=== PATIENT | male | born 1940 | race Caucasian/White ===

== ENCOUNTER → 2021-10-31 | Outpatient (CLI) | payer MEDICARE, OTHER ==
--- NOTE | 2021-11-02 15:25 | MR ---
EXAMINATION TYPE: MR Prostate wo/w con DATE OF EXAM: 10/31/2021 COMPARISON: None. INDICATION: MALIGNANT NEOPLASM OF PROSTATE PSA: 5.27 ng/ml on April 03, 2021 and 5.41 on October 12, 2021 Recent Biopsy and Date: July 01, 2021 Pathology Report (If Applicable): Right lateral apical adenocarcinoma 3+3 = 6, involving 0.5 mm tissu e 5%. Right lateral mid adenocarcinoma Lavina grade 4+3 = 7, involving 7 mm length 40%, right base a denocarcinoma 3+4 = 7, length 8 mm 40%. Left lateral apex atypia. TECHNIQUE: Examination was performed using a 3T MRI without an endorectal coil. Multiparametric imaging was perf ormed with T2 mutliplanar sequences, axial diffusion weighted imaging and dynamic contrast enhanced i maging, utilizing 13 mL intravenous Gadavist gadolinium contrast. FINDINGS: Suboptimal as there is significant motion artifact compromise PROSTATE VOLUME: 5.4 cm SI x 3.2 cm AP x 4.8 cm LR Vol= 43.4 cc Predicted PSA equals 5.21. PSA DENSITY: 0.12 ng/ml/cc Slightly enlarged prostate gland is present. Prolonged shows some areas of indistinct hypointensity o n ADC mapping and T2-weighted images without increased signal on diffusion. Central transitional zone shows heterogeneity without discrete or suspicious areas of T2 hypointensity. No restricted diffusio n. Prostate capsule is maintained. Small amount of residual hemorrhage anterior right mid zone and po sterior right base from biopsy is noted. Bladder shows marked scattered diverticula. Seminal vesicles symmetric and within normal limits. No a bnormal bowel dilatation. No pelvic ascites. Visualized osseous structures are intact. IMPRESSION: Enlarged prostate consistent with BPH. Marked diverticular formation in the urinary bladd er bilaterally. A focus of clinically significant cancer is not identified on MRI. Highest Assessment Category: 2 MRI Stage: T1c N0 M0 based on review of pelvic images. False negative rates for MRI range from 5-20% depending on risk profile. Assessment Categories: 1 ? Very low (clinically significant cancer is highly unlikely to be present) 2 ? Low (clinically significant cancer is unlikely to be present) 3 ? Intermediate (the presence of clinically significant cancer is equivocal) 4 ? High (clinically significant cancer is likely to be present) 5 ? Very high (clinically significant cancer is highly likely to be present)
== END | disposition home or self-care (01) ==
LOC: RADMRIMAIN 09:41
PROVIDERS: ATTEND Internal Medicine
DX: C61 Malignant neoplasm of prostate (principal)
CPT/HCPCS: 72197; A9585

== ENCOUNTER → 2022-05-05 | Outpatient (CLI) | payer MEDICARE, OTHER ==
--- NOTE | 2022-05-05 11:54 | US ---
EXAMINATION TYPE: US kidneys/renal and bladder DATE OF EXAM: 05/05/2022 COMPARISON: MRI prostate 7 and 22. CLINICAL HISTORY: N39.0 URINARY TRACT INFECTION, SITE NOT SPECIFIED. EXAM MEASUREMENTS: Right Kidney: 10.8 x 5.2 x 5.2 cm Left Kidney: 11.6 x 5,7 x 6.7 cm Patient of large body habitus, somewhat limiting study. Right Kidney: No hydronephrosis or masses seen Left Kidney: No hydronephrosis or masses seen Bladder: probable bladder stone measuring 8mm, irregular contour of posterior wall, hypoechoic tubul ar structure is felt to represent Trabeculation and bladder diverticula seen on prior MRI. There is no evidence for hydronephrosis at this point in time. No nephrolithiasis is seen. No jacek s are identified. The urinary bladder is anechoic. Bilateral ureteral jets are seen. IMPRESSION: 1. Suspected bladder stone present. 2. Trabeculated bladder wall with diverticula which can be seen in setting of chronic bladder outlet obstruction given patient's prostatomegaly.
== END | disposition home or self-care (01) ==
LOC: RADUSWWP 10:20
PROVIDERS: ATTEND Urology
DX: N40.0 Benign prostatic hyperplasia without lower urinary tract symptoms (principal); N32.89 Other specified disorders of bladder; N32.0 Bladder-neck obstruction; N32.3 Diverticulum of bladder; N39.0 Urinary tract infection, site not specified
CPT/HCPCS: 76770

== ENCOUNTER → 2023-01-31 | Outpatient (CLI) | payer MEDICARE, OTHER ==
[2023-01-31 15:42] LABS: Basophils # (A) 0.03 X 10*3/uL (0.00-0.10); Basophils % (A) 0.5 %; Eosinophils % (A) 3.2 %; HCT 45.2 % (39.6-50.0); HGB 14.8 d/dL (13.0-17.0); Lymphocytes % (A) 26.9 %; MCH 28.4 pg (27.0-32.0); MCHC 32.7 d/dL (32.0-37.0); MCV 86.6 FL (80.0-97.0); Mean Platelet Volume 10.5 FL (9.5-12.2); Monocytes # (A) 0.51 X 10*3/uL (0.20-1.00); Monocytes % (A) 8.1 %; NRBC Per 100 WBC 0 X 10*3/uL (0.00-0.01); Neutrophils # (A) 3.85 X 10*3/uL (1.80-7.70); Neutrophils % (A) 60.7 %; Platelet Count 176 X 10*3/uL (140-440); RBC 5.22 X 10*6/uL (4.40-5.60); RDW 14.7 % (11.5-14.5); WBC 6.33 X 10*3/uL (4.50-10.00)
[2023-01-31 16:08] LABS: BUN/Creat Ratio 23.91 Ratio (12.00-20.00); Blood Urea Nitrogen 26.3 mg/dL (9.0-27.0); Calcium 9.1 mg/dL (8.7-10.3); Carbon Dioxide 27.1 mmol/L (21.6-31.8); Chloride 110 mmol/L (96-109); Glucose 108 mg/dL (70-110); Potassium 4.6 mmol/L (3.5-5.5); Sodium 146 mmol/L (135-145)
[2023-01-31 18:01] LABS: Appearance,Urine Turbid (Clear); Bacteria,Urine 3+ (None Seen); Bilirubin,Urine Negative (Negative); Blood,Urine Moderate (Negative); Color,Urine Dark Yellow (Yellow); Ketones,Urine Negative (Negative); Nitrite,Urine Negative (Negative); Specific Gravity,Urine 1.019 (1.001-1.030)
== END | disposition home or self-care (01) ==
LOC: LABPAT 11:12
PROVIDERS: ATTEND Urology
DX: Z01.812 Encounter for preprocedural laboratory examination (principal); N35.014 Post-traumatic urethral stricture, male, unspecified
CPT/HCPCS: 80048; 81001; 85025; 87086

== ENCOUNTER 2023-02-09 08:52 | Day surgery (SDC) | payer MEDICARE, OTHER ==
--- NOTE | 2023-02-08 18:39 | P.GSHP ---
History of Present Illness H&P Date: 02/08/23 82 yo male with a t1C prostate cancer dx in 2021, g6 07/04 biopsies on has a recurrent urethral stricture previously dilated He comes for a dviu. The risks , complications and alternatives have been discussed. - Constitutional Constitutional: Denies chills, Denies fever - EENT Eyes: denies blurred vision, denies pain Ears, nose, mouth and throat: Denies headache, Denies sore throat - Cardiovascular Cardiovascular: Denies chest pain, Denies shortness of breath - Respiratory Respiratory: Denies cough, Denies 7 - Gastrointestinal Gastrointestinal: Denies abdominal pain, Denies diarrhea, Denies nausea, Denies vomiting - Genitourinary (Female) Genitourinary: Denies dysuria, Denies hematuria - Genitourinary (Male) Genitourinary: Denies dysuria, Denies hematuria - Musculoskeletal Musculoskeletal: Denies myalgias - Integumentary Integumentary: Denies pruritus, Denies rash - Neurological Neurological: Denies numbness, Denies weakness - Psychiatric Psychiatric: Denies anxiety, Denies depression - Endocrine Endocrine: Denies fatigue, Denies weight change Past Medical History Past Medical History: COPD, Deep Vein Thrombosis (DVT), Hyperlipidemia, Hypertension, Prostate Disorder Additional Past Medical History / Comment(s): BPH, seasonal allergies, uses 2 liters 02 as needed, scar tissue in penis makes it hard to urinate. History of Any Multi-Drug Resistant Organisms: None Reported Additional Past Surgical History / Comment(s): cystoscopy, removal of blood clots. Past Anesthesia/Blood Transfusion Reactions: No Reported Reaction Smoking Status: Former smoker, Light tobacco smoker - Past Family History Father Family Medical History: No Reported History Medications and Allergies Home Medications Medication Instructions Recorded Confirmed Type Albuterol Sulfate [Albuterol 2 puff INHALATION DIRECTED PRN 02/03/23 02/03/23 History Sulfate Hfa] Atorvastatin [Lipitor] 40 mg PO HS 02/03/23 02/03/23 History Isosorbide Mononitrate ER [Imdur] 30 mg PO DAILY 02/03/23 02/03/23 History Montelukast Sodium 10 mg PO HS 02/03/23 02/03/23 History Rivaroxaban [Xarelto] 20 mg PO DAILY 02/03/23 02/03/23 History Tamsulosin HCl [Flomax] 0.4 mg PO DAILY 02/03/23 02/03/23 History Allergies Allergy/AdvReac Type Severity Reaction Status Date / Time No Known Allergies Allergy Verified 02/03/23 11:41 Surgical - Exam - General well developed, well nourished, no distress - Eyes normal ocular movement, no icteric - ENT no hearing loss, no congestion - Neck no masses, trachea midline - Respiratory normal respiratory effort, clear to auscultation - Abdomen Abdomen: soft, non tender, no guarding, no rigid, no rebound - Integumentary no rash, no abnormal pigmentation - Neurologic no disoriented, no combative - Psychiatric oriented to time, oriented to person, oriented to place, speech is normal, tho ry intact Assessment and Plan Assessment: Impression: urethral stricture, cap, multiple medical comorbidities. Plan: dviu
[~2023-02-09 08:52] MED LIST: HYDROmorphone 0.5 MG/0.5 ML SYRINGE IVP PRN; LACTATED RINGERS 1,000 ML IV SCH; ONDANSETRON 4 MG/2 ML VIAL IVP ONE
[2023-02-09] MEDS ORDERED: PROPOFOL 10 MG/ML 20 ML VIAL IV ONE (10:41)
[2023-02-09] MEDS ORDERED: fentaNYL (PF) 50 MCG/ML 2 ML AMP ONE (10:41)
[2023-02-09] MEDS ORDERED: LIDOCAINE 1% INJ 10MG/ML (20 ML MDV) ONE (10:41)
--- NOTE | 2023-02-09 11:53 | P.OP ---
Date of Procedure: 02/09/23 Preoperative Diagnosis: bulbar urethral stricture Postoperative Diagnosis: same Procedure(s) Performed: cysto with direct vision urethrotomy Anesthesia: INDIO Surgeon: Octavio Matthew Estimated Blood Loss (ml): 25 Pathology: none sent Condition: stable Disposition: PACU Indications for Procedure: Thepatient is 82. He has a rucurrent bulbar urethral stricture. He comes for a dviu. Description of Procedure: The patient is brought to the or. He is given a general anesthetic. He is placed in lithotomy position with a sterile prep and drape. Cystoscopy with a 20 fr sheath is performed. In the mid bulb there is a tight stricture. an 0-35 wire is passed through the stricture. Along side the wire with the straight knife and cut the urethra at 12 oclock. the stricture is dense and extends into the membraneous urethra.I then advance the scope the the enlarged prostate into the severly trabeculated bladder. The urethra is inspected upon pull out and there is not any significant bleeding. Over the wire is then passed an 18fr coude tip catheter.the urine is light pink. the patient is awakened and returned to the recovery room in good condition.
[2023-02-09 12:03] VITALS: TEMP 96.8
[2023-02-09] MEDS ORDERED: LACTATED RINGERS 1,000 ML IV ONE (12:13)
[2023-02-09 12:24] VITALS: RESP 16
[2023-02-09 13:06] VITALS: BP 163/74; PULSE 63
== END 2023-02-09 13:07 | disposition home or self-care (01) ==
LOC: OR 08:52
PROVIDERS: ATTEND Urology
DX: N35.912 Unspecified bulbous urethral stricture, male (principal); J44.9 Chronic obstructive pulmonary disease, unspecified; E78.5 Hyperlipidemia, unspecified; I10 Essential (primary) hypertension; Z86.73 Personal history of transient ischemic attack (TIA), and cerebral infarction without residual deficits; Z86.718 Personal history of other venous thrombosis and embolism; Z87.891 Personal history of nicotine dependence; Z79.51 Long term (current) use of inhaled steroids; Z79.01 Long term (current) use of anticoagulants; Z85.46 Personal history of malignant neoplasm of prostate; Z79.899 Other long term (current) drug therapy
CPT/HCPCS: 52275; C1769; C1758; J2405; J0690; J2001; J3010; J2704